=== PATIENT | male | born 1990 | race Caucasian/White ===

== ENCOUNTER 2025-04-25 14:21 | Emergency (ER) | payer MEDICAID ==
[~2025-04-25] VITALS: Ht 170.2 cm; Wt 86.2 kg
[2025-04-25] MEDS: KETOROLAC TROMETHAMINE 15 MG/ML VIAL IV ONE (15:00)
[2025-04-25] MEDS ORDERED: KETOROLAC TROMETHAMINE 15 MG/ML VIAL ONE (15:05)
[2025-04-25 15:47] LABS: APPEARANCE,URINE CLEAR (CLEAR); BLOOD, URINE 3+ Ery/uL (NEGATIVE); LEUKOCYTE ESTERASE ,URINE 1+ (NEGATIVE); NITRITE, URINE NEGATIVE (NEGATIVE); UGLUCOSE NEGATIVE (NEGATIVE)
[2025-04-25 15:57] LABS: PLATELET COUNT (AUTO) 260 K/uL (150-450); RED BLOOD CELL COUNT(AUTO) 5.11 MIL/uL (4.5-6.0); RED CELL DISTRIBUTION WIDTH 13.7 % (11.5-15.0); WHITE BLOOD COUNT (AUTO) 9.3 K/uL (4.3-11.0)
[2025-04-25 15:58] LABS: CALCIUM, SERUM 8.8 mg/dL (8.5-10.1); CREATININE 1.2 mg/dL (0.6-1.3); SODIUM SERUM 142.0 mmol/L (136-145); UREA NITROGEN, BLOOD 11.0 mg/dL (7-18)
[2025-04-25 16:04] LABS: ASPARTATE AMINOTRANSFERASE 13.0 U/L (15-37); TOTAL PROTEIN, SERUM 7.6 g/dL (6.4-8.2)
[2025-04-25 16:07] LABS: ADD URINE CULTURE YES
[2025-04-25] MEDS: HYDROCODONE/APAP 5/325MG TABLET PO ONE (16:30)
[2025-04-25] MEDS ORDERED: SULF1TAB48 PO (16:37)
[2025-04-25] MEDS ORDERED: IBUP-1490 PO (16:37)
[2025-04-25] MEDS: CEFTRIAXONE 1 G in IV D5W 50 ML IV ONE (17:00)
[2025-04-25] MEDS ORDERED: CEFTRIAXONE 1GM BAG (ER ONLY) 50 ML IV ONE (17:01)
[2025-04-25 17:33] VITALS: BP 129/71; TEMP 98.6; O2SAT 100
== END 2025-04-25 17:33 | disposition home or self-care (01) ==
LOC: ER 14:25
DX: N39.0 Urinary tract infection, site not specified (principal)
CPT/HCPCS: 99285; 74176; 96365; 96375; 85025; 80048; 87086; 83690; 80076; 81001; 36415; J1885; J0696 ×2; J7060